=== PATIENT | female | born 1965 | race Caucasian/White ===

== ENCOUNTER → 2024-02-11 07:18 | Outpatient (REF) | payer BC, SELFPAY | LOC: HWRAD 07:18 | PROVIDERS: ATTENDING PHYSICIAN Physician Assistant | DX: R10.13 Epigastric pain (principal); R19.8 Other specified symptoms and signs involving the digestive system and abdomen; R11.0 Nausea; R14.3 Flatulence; R19.7 Diarrhea, unspecified | CPT/HCPCS: 76700 ==

== ENCOUNTER 2025-07-20 06:26 | Day surgery (SDC) | payer BC, SELFPAY ==
[2025-07-20 11:02] LABS: Glucose - Point of Care 206 mg/dl (70-99)
== END 2025-07-20 12:17 | disposition home or self-care (01) ==
LOC: GI 06:26
PROVIDERS: ATTENDING PHYSICIAN Internal Medicine Gastroenterology
DX: Z12.11 Encounter for screening for malignant neoplasm of colon (principal); K57.30 Diverticulosis of large intestine without perforation or abscess without bleeding; K52.9 Noninfective gastroenteritis and colitis, unspecified; K64.9 Unspecified hemorrhoids; D12.0 Benign neoplasm of cecum; D12.3 Benign neoplasm of transverse colon; K20.90 Esophagitis, unspecified without bleeding
CPT/HCPCS: 45385; 45380; 82962; 88305; 88342

== ENCOUNTER → 2025-09-19 07:45 | Outpatient (REF) | payer BC, SELFPAY | LOC: RAD 07:45 | PROVIDERS: ATTENDING PHYSICIAN Internal Medicine Gastroenterology; FAMILY PHYSICIAN Family Medicine | DX: R10.13 Epigastric pain (principal) | CPT/HCPCS: 78264; A9541 ==